=== PATIENT | male | born 1965 ===

== ENCOUNTER 2019-09-12 07:20 | Outpatient (CLI) | payer OTHER, SELFPAY ==
--- NOTE | 2019-09-22 02:36 | SLEEP_ITS ---
Polysomnography Report DATE OF STUDY: 09/12/2019 REASON FOR STUDY: Suspected sleep apnea. CLINICAL SUMMARY: [place] Sleepiness Scale of 10/24. Normal is 10 or less. Snoring apneic events during sleep, excessive daytime sleepiness, memory impairment, hypertension, and diabetes mellitus type 2. Height is 76 inches. Weight is 320 pounds. Body mass index, BMI is 36.9. Less than less than 26 recommended. DESCRIPTION: Informed consent was obtained for the procedure, which included the simultaneous monitoring and recording of electroencephalography EEG, right electrooculography EOG, submental electromyography EMG, EKG, oral/nasal airflow, snoring, respiratory effort, oxygen saturation, right and left anterior tibialis electromyography EMG, and body position. Epochs of data was staged and scored by registered technologist according to published [facility] scoring guidelines and 30% reduction in airflow associated with 4% or greater desaturation for definition of hypopnea AASM rule 1B. SLEEP ARCHITECTURE SUMMARY: Total recording time was 433.3 minutes. Total sleep time was 193.1 minutes. Stage N1 was 18.6% of the total sleep time, increased. Stage N2 was 71% of the total sleep time, increased. Stage N3 was 0% of the total sleep time, decreased. Stage REM was 10.4% of the total sleep time, decreased. Latency to sleep onset was 60.3 minutes. Latency to REM sleep was 94.5 minutes. Sleep efficiency was 44.6%, decreased. POSITIONAL SUMMARY: The patient slept 23.5 minutes/12.2% in the supine position. Slept 306.2 minutes/158.6% in the non-supine position. AROUSAL SUMMARY: No arousals were caused by apnea with index of 0 per hour. Fifteen arousals were caused by hypopnea with index of 2.1 per hour. Four arousals were caused by snore with index of 0.6 per hour. Sixty-one arousals were spontaneous with index of 8.4 per hour. Fourteen arousals were caused by limb movements with index of 19 per hour. Total number of arousal was 94 with index of 13 per hour. RESPIRATORY EVENTS SUMMARY: Total number of apnea was 0. Total number of hypopnea was 92. The total number of apnea during REM was 0. Total number of hypopnea during REM was 4. Total number of apnea during non-REM was 0. Total number of hypopnea during non-REM was 88. The total apnea-hypopnea index AHI was 28.6 per hour. The total REM AHI was 12 per hour. Total non-REM AHI was 30.5 per hour. The total supine AHI was 76.6 per hour. The total non-supine AHI was 21.9 per hour. The total number of hypopnea was 92 with index of 28.6 per hour. Total number of obstructive hypopnea was 92 with index of 28.6 per hour. Total number of central hypopnea was 0 with index of 0 per hour. OXYGEN SATURATION SUMMARY: Mean oxygen saturation during sleep was 91.4%, maximum oxygen was 98%, minimum oxygen was 84%, oxygen saturation was lower than 90% for 8.3% of the total recording time, the oxygen saturation was lower than 88% for 0.8% of the total recording time. LIMB MOVEMENTS SUMMARY: The number of limb movements was 190 with index of 59 per hour. Number of periodic limb movements was 0 with index of 0 per hour. SNORE SUMMARY: Total number of snoring was 69. HEART RATE SUMMARY: The mean heart rate during sleep was 99.2 beats per minute, maximum heart rate was 148.5 beats per minute, minimum heart rate was 60 beats per minute. CARDIAC EVENTS SUMMARY: Sinus tachycardia was noted during the sleep study. IMPRESSION: 1. Severe positional obstructive sleep apnea. 2. No evidence of central sleep apnea. 3. No evidence of periodic limb movement disorder. 4. Poor sleep efficiency care. 5. Disturbed sleep architecture. 6. Moderately severe nocturnal oxygen desaturation. SPECIAL RECOMMENDATIONS:
== END 2019-09-12 07:21 | disposition home or self-care (01) ==
LOC: ANHCSM 07:21
PROVIDERS: Visit Provider Internal Medicine Rheumatology
DX: G47.10 Hypersomnia, unspecified (principal)
CPT/HCPCS: 95810

== ENCOUNTER 2020-05-05 01:33 | Outpatient (CLI) | payer OTHER, SELFPAY ==
[2020-05-05 18:03] LABS: SARS-CoV-2 RNA PCR Negative
== END 2020-05-05 01:34 | disposition home or self-care (01) ==
LOC: ANHCOVIDDT 01:34
PROVIDERS: Visit Provider Internal Medicine Critical Care Medicine
DX: Z01.812 Encounter for preprocedural laboratory examination (principal); Z20.828 Contact with and (suspected) exposure to other viral communicable diseases
CPT/HCPCS: 87635; C9803; U0003

== ENCOUNTER 2020-05-08 06:35 | Outpatient (CLI) | payer OTHER, SELFPAY ==
--- NOTE | 2020-05-28 06:16 | SLEEP_ITS ---
CPAP TITRATION DATE OF STUDY: 05/08/2020 ORDERING PHYSICIAN: John Aiken M.D. REASON FOR THE STUDY: Prior study on September 12, 2019 showing severe positional obstructive sleep apnea syndrome. HISTORY: This patient is a 54-year-old male, 75 inches tall, weighing 325 pounds with a body mass index of 40.6. On a prior study, September 12, 2019, his apnea-hypopnea index was 26.8, the supine apnea-hypopnea index was 76.6, and he desaturated to a minimum of 84%. He returns at this time for CPAP titration. His medical comorbidities include diabetic neuropathy, restless legs syndrome, fatigue, arthralgia due to lupus, hypertension, ADHD, hypothyroidism. MEDICATIONS: 1. Metformin 1000 mg twice a day. 2. Levothyroxine 200 mcg a day. 3. Fosamax 1 dose per week. 4. Prednisone 9 mg a day. 5. Testosterone 300 mg per month. 6. Losartan 100 mg a day. 7. Atomoxetine 80 mg a day. 8. Hydroxychloroquine 1 tablet daily. HABITS: No mention of tobacco. Caffeine, 2 servings a day. No alcohol or recreational drugs. DESCRIPTION OF THE STUDY: On the [place] Sleepiness Scale, his score is 10. This patient underwent a full night CPAP titration using the attended Sandman system with EOG, EEG, submental EMG, EKG, nasal and oral airflow using thermistors and nasal pressure sensors, chest and abdominal belts, body position data and pulse oximetry. This study was scored using CMS guidelines. The duration of the study was 440 minutes. Sleep time was 403.3 minutes. Sleep efficiency was 91.7%. Sleep latency was short at 1.2 minutes. REM latency was normal 95.5 minutes. He had 18 awakenings and spent 35.5 minutes awake after sleep onset. Sleep architecture showed 8.2% stage 1 sleep, 68% stage 2 sleep, no stage 3 sleep and 15.7% stage REM. He spent 16.1% of the study supine. The patient had 3 REM episodes. REM density increased during the study. The overall apnea-hypopnea index was 7.9, the obstructive index is 5.5, and the central index is 8.1. The supine index is 5.1. The patient had no events during REM and either body position. During non-REM, he had 1 central apnea and 5 obstructive hypopneas for an index of 5.3. In non-supine non-REM, he had 3 central apneas, 9 obstructive hypopneas for an index of 3.1. The supine index overall is 5.1. Non-supine index 2.4. The lowest desaturation was 77%. The mean saturation was 94.4%. The patient spent 3.8 minutes below 88%, which was 0.9% of the study. He had 54 desaturations of 4% or greater for an index of 7.4. AROUSALS: 120 arousals for an index of 16.4. He had 8 apneas causing an apnea-hypopnea index of 1.4, 6 hypopneas for an index of 0.85 snores for an index of 0.7, 40 spontaneous for an index of 5.5, 61 limb movements for an index of 8.3. LIMB MOVEMENTS: 680 isolated limb movements for an index of 101.2. There were 2 periodic limb movements for an index of 0.3. SNORING: Moderately loud and this was eliminated at the optimal pressure. EKG: Sinus rhythm without arrhythmia. Heart rate ranged from 45 to 130 with a mean of 76. No arrhythmia. During this titration, the patient used a medium AirFit F20 full face mask and was titrated from 5 cm to 7 cm. At 7 cm, the patient spent 6 hours 25 minutes in bed, had 1 hour 9 minutes of REM, 4 hours 46 minutes of non-REM, had 2 central apneas, 10 hypopneas for an apnea-hypopnea index of 2 and a minimum saturation of 89%. Mean saturation was 95%. Sleep efficiency was 92%. IMPRESSION: 1. This CPAP titration shows an optimal pressure of 7 cm of water pressure using a medium AirFit F20 full face mask. At that setting, the patient had supine REM. The apnea-hypopnea index was normalized to 2.0 and hypoxemia was eliminated. Snoring was eliminated. 2. Min
== END 2020-05-08 06:36 | disposition home or self-care (01) ==
LOC: ANHCSM 15:27
PROVIDERS: Visit Provider Internal Medicine Rheumatology
DX: G47.33 Obstructive sleep apnea (adult) (pediatric) (principal)
CPT/HCPCS: 87635; 95811; C9803; U0003